=== PATIENT | female | born 1980 | race Hispanic/Latino ===

== ENCOUNTER 2024-01-08 11:22 | Emergency (ER) | payer SELFPAY, OTHER ==
[2024-01-08] MEDS ORDERED: Ondansetron ODT 4 MG TAB ONE (12:19)
[2024-01-08] MEDS ORDERED: Ketorolac Tromethamine 30 MG (1 mL) VIAL ONE (12:19)
== END 2024-01-08 14:08 | disposition home or self-care (01) ==
LOC: CSHERS 11:22
DX: S09.90XA Unspecified injury of head, initial encounter (principal); S13.4XXA Sprain of ligaments of cervical spine, initial encounter; S63.501A Unspecified sprain of right wrist, initial encounter; Z55.6 Problems related to health literacy; Z72.89 Other problems related to lifestyle; W01.198A Fall on same level from slipping, tripping and stumbling with subsequent striking against other object, initial encounter
CPT/HCPCS: 70450; 72125; 96372; J1885; Q0162